=== PATIENT | female | born 1940 | race African-American/Black ===

== ENCOUNTER 2025-05-02 09:20 | Day surgery (SDC) | payer OTHER, SELFPAY ==
[2025-04-29 15:05] VITALS: BMI 23.4
[2025-05-02] VITALS (15 sets, daily range): BP systolic 128–198; BP diastolic 72–182; PULSE 67–91; RESP 12–30; TEMP 36.3–36.7; O2SAT 99–100; BMI 23.2
[2025-05-02] MEDS: hydrALAZINE INJ 20 MG/ML VIAL 10 MG IVP (10:08)
[2025-05-02] MEDS: SODIUM CHLORIDE 0.9% 500 ML 500 ML 20 ML IV (11:15)
[2025-05-02] MEDS: fentaNYL CIT INJ 50 mCg/ML AMP 2ML (ASD USE ONLY) IVP (11:30)
[2025-05-02] MEDS: MIDAZOLAM INJ 1 MG/ML VIAL 2 ML (ASD USE ONLY) 2 MG IVP (11:30)
[2025-05-02] MEDS: MEPERIDINE INJ 25 MG/ML VIAL (ASD USE ONLY) IVP (11:34)
== END 2025-05-02 12:36 | disposition home or self-care (01) ==
PROVIDERS: PCP Internal Medicine; Referring Provider Specialist; Visit Provider Specialist
PROC: 0DBE8ZX Excision of Large Intestine, Via Natural or Artificial Opening Endoscopic, Diagnostic (ICD-10-PCS; CPT 45380; principal; 2025-05-02 09:00)
DX: K64.1 Second degree hemorrhoids (principal); K57.30 Diverticulosis of large intestine without perforation or abscess without bleeding
CPT/HCPCS: 45378; A4649; J0360; J1200; J2175; J2250; J3010; J7999